=== PATIENT | male | born 1980 | race Caucasian/White ===

== ENCOUNTER 2018-10-24 23:27 | Emergency (ER) | payer OTHER ==
[~2018-10-24] VITALS: Ht 175.3 cm; Wt 74.8 kg
[2018-10-24] MEDS ORDERED: SINGULAIR4 M1 (23:47)
[2018-10-24] MEDS ORDERED: ZYRTEC (23:48)
[2018-10-25] MEDS ORDERED: INTESTINEX680 M1 PO (02:05)
[2018-10-25] MEDS ORDERED: AMOX-CLAV 875-1 EACH PO (02:05)
== END 2018-10-25 02:21 | disposition home or self-care (01) ==
LOC: ER 23:27
DX: S60.572A Other superficial bite of hand of left hand, initial encounter (principal); L03.114 Cellulitis of left upper limb; W54.0XXA Bitten by dog, initial encounter; Y93.89 Activity, other specified; Y92.89 Other specified places as the place of occurrence of the external cause; Y99.8 Other external cause status